=== PATIENT | male | born 1990 | race Caucasian/White ===

== ENCOUNTER 2020-08-20 12:45 | Emergency (ER) | payer OTHER ==
[~2020-08-20] VITALS: Ht 180.3 cm; Wt 65.8 kg
[2020-08-20 12:58] VITALS: Ht 180.3 cm; Wt 65.8 kg
[2020-08-20 13:13] LABS: PLATELET COUNT 214 x10^3mcL (130-400); RED CELL DISTRIBUTION WIDTH 13.5 % (11.5-14.5)
[2020-08-20 13:31] LABS: ALBUMIN 4.1 g/dL (3.4-5.0); ALKALINE PHOSPHATASE 95 U/L (46-116); ALT/SGPT 54 U/L (16-63); AST/SGOT 52 U/L (15-37); BILIRUBIN TOTAL 1.76 mg/dL (0.20-1.00); CALCIUM 9.7 mg/dL (8.5-10.1); CARBON DIOXIDE 32.3 mmol/L (21-32); CHLORIDE SERUM 103 mmol/L (98-107); CREATININE SERUM 1.2 mg/dL (0.7-1.3); GFR1 > 60 mL/min; POTASSIUM SERUM 4.1 mmol/L (3.5-5.1); SODIUM SERUM 143 mmol/L (136-145); TOTAL PROTEIN, SERUM 7.7 g/dL (6.4-8.2)
[2020-08-20 13:35] LABS: GLUCOSE SERUM 42 mg/dL (74-106)
[2020-08-20 15:40] LABS: AMPHETAMINE QUAL UR POSITIVE (See below)
[2020-08-20 19:08] VITALS: BP 118/64
== END 2020-08-20 22:10 | disposition short-term general hospital (02) ==
LOC: ED 12:45
PROVIDERS: Student in an Organized Health Care Education/Training Program
DX: R45.851 Suicidal ideations (principal); F15.13 Other stimulant abuse with withdrawal; Z20.828 Contact with and (suspected) exposure to other viral communicable diseases
CPT/HCPCS: 82962; G0480